=== PATIENT | male | born 1945 | race African-American/Black ===

== ENCOUNTER 2018-01-24 09:00 | Inpatient (IN) | payer OTHER ==
[~2018-01-24] VITALS: Ht 172.7 cm; Wt 85.8 kg
[~2018-01-24 09:00] MED LIST: ASA5EC PO; METO-385 PO; PIOG15TA6 PO; PRED5DRO7 LEFTEYE; RAMI10CA19 PO; SIMV40TA2 PO
[2018-01-24] MEDS ORDERED: GABA-529 PO (09:54)
[2018-01-24] MEDS ORDERED: PENT400T11 MT (09:54)
[2018-01-24] MEDS ORDERED: IODIXANOL 320MG/ML 100 ML BOTTLE IV ONE ×2 (10:55→12:12)
[2018-01-24] MEDS ORDERED: LIDOCAINE HCL 1% 20ML VIAL (Pyxis) INJ ONE (10:55)
[2018-01-24] MEDS ORDERED: FENTANYL CITRATE/PF 50MCG/ML 2ML VIAL ONE (11:31)
[2018-01-24] MEDS ORDERED: MIDAZOLAM HCL 2 MG/2 ML VIAL ONE (11:31)
[2018-01-24] MEDS ORDERED: IOHEXOL-300 100 ML BOTTLE ONE (12:02)
[2018-01-24] MEDS ORDERED: CLOPIDOGREL 75MG TABLET ONE (12:27)
[2018-01-24] MEDS ORDERED: ASPIRIN 325MG TABLET ONE (12:27)
[2018-01-24] MEDS ORDERED: ONDANSETRON HCL 4MG/2ML INJ IV PRN (12:30)
[2018-01-24] MEDS ORDERED: ATROPINE SULFATE 1MG/10ML SYR IV PRN (12:30)
[2018-01-24] MEDS ORDERED: ACETAMINOPHEN 325MG TABLET PO PRN (12:30)
[2018-01-24 13:39] VITALS: BP 117/68
[2018-01-24] MEDS ORDERED: HEPARIN SODIUM 1,000 UNIT/1ML VIAL IV ONE ×2 (13:44→13:49)
[2018-01-24 16:00] VITALS: BP 118/74
[2018-01-24 18:00] VITALS: BP 121/62
[2018-01-24 20:00] VITALS: BP 111/70
[2018-01-24] MEDS ORDERED: MEDICATION NOT ON FORMULARY EA (Ramipril 10 MG) PO SCH (21:00)
[2018-01-24] MEDS ORDERED: MEDICATION NOT ON FORMULARY EA (Metoprolol Succinate 50 MG) PO SCH (21:00)
[2018-01-24] MEDS ORDERED: LISINOPRIL 40MG TABLET PO SCH (21:00)
[2018-01-24] MEDS ORDERED: ATORVASTATIN CALCIUM 20MG TABLET PO SCH (21:00)
[2018-01-24] MEDS ORDERED: SIMVASTATIN PO SCH (21:00)
[2018-01-24] MEDS: METOPROLOL TARTRATE 25MG TABLET PO SCH (21:01)
[2018-01-24 22:00] VITALS: BP 116/52
[2018-01-25] VITALS: BP 105/53
[2018-01-25 04:00] VITALS: BP 109/66
[2018-01-25 06:00] VITALS: BP 113/45
[2018-01-25 06:40] LABS: BASOPHILS % 0.4 % (0.0-2.0); EOSINOPHILS % 1.5 % (0.0-5.0); HEMATOCRIT. 33.9 % (42.0-52.0); HEMOGLOBIN. 11.6 g/dL (14.0-18.0); LYMPHOCYTES % 17.4 % (20.0-50.0); MEAN CORPUSCULAR HEMOGLOBIN 31.2 pg (28.0-32.0); MEAN CORPUSCULAR VOLUME 91.6 fL (80.0-94.0); MEAN PLATELET VOLUME 9.3 fl (7.4-10.4); MONOCYTES % 10.2 % (2.0-8.0); NEUTROPHILS % 70.5 % (40.0-76.0); PLATELET 121 x1000/uL (130-400); RED BLOOD CELL COUNT 3.71 mill/uL (4.7-6.1); RED CELL DISTRIBUTION WIDTH 14.6 % (11.6-14.6)
[2018-01-25 07:02] LABS: CHLORIDE 108 mEq/L (98-107)
[2018-01-25 08:00] VITALS: BP 125/69
[2018-01-25] MEDS: METOPROLOL TARTRATE 25MG TABLET PO SCH (08:25)
[2018-01-25] MEDS ORDERED: PIOGLITAZONE 15MG TABLET PO SCH (09:00)
[2018-01-25] MEDS ORDERED: CLOPIDOGREL 75MG TABLET PO SCH (09:00)
[2018-01-25] MEDS ORDERED: ASPIRIN 325MG TABLET PO SCH (09:00)
[2018-01-25 09:51] VITALS: BP 125/69
[2018-01-25 10:00] VITALS: BP 118/65
== END 2018-01-25 10:40 | disposition home or self-care (01) | DRG 247 ==
LOC: CCL 09:00 → 3WST 09:01
PROVIDERS: ADMIT Specialist; ATTEND Specialist
PROC: 027034Z Dilation of Coronary Artery, One Artery with Drug-eluting Intraluminal Device, Percutaneous Approach (ICD-10-PCS; principal; 2018-01-24)
PROC: 4A023N7 Measurement of Cardiac Sampling and Pressure, Left Heart, Percutaneous Approach (ICD-10-PCS; 2018-01-24)
PROC: B2111ZZ Fluoroscopy of Multiple Coronary Arteries using Low Osmolar Contrast (ICD-10-PCS; 2018-01-24)
PROC: B2151ZZ Fluoroscopy of Left Heart using Low Osmolar Contrast (ICD-10-PCS; 2018-01-24)
DX: I25.110 Atherosclerotic heart disease of native coronary artery with unstable angina pectoris (principal); E11.9 Type 2 diabetes mellitus without complications; E78.5 Hyperlipidemia, unspecified; H54.62 Unqualified visual loss, left eye, normal vision right eye; I11.9 Hypertensive heart disease without heart failure; J44.9 Chronic obstructive pulmonary disease, unspecified
CPT/HCPCS: 36415; 80048; 82962; 85025; 85347; 92928; 93005; 93458; C1725; C1760; C1769; C1874; C1887; C1893; J1644; J2250; J3010; J3490; Q9967